=== PATIENT | female | born 2000 | race Caucasian/White ===

== ENCOUNTER → 2020-04-21 13:25 | Outpatient (BNVA) | payer MEDICAID, SELFPAY | PROVIDERS: Family Provider Nurse Practitioner; PCP Nurse Practitioner; Visit Provider Obstetrics & Gynecology | DX: Z11.3 Encounter for screening for infections with a predominantly sexual mode of transmission (principal) | CPT/HCPCS: 87491; 87591; 88175 ==

== ENCOUNTER → 2020-10-21 09:36 | Outpatient (BNVA) | payer MEDICAID, SELFPAY | PROVIDERS: Family Provider Nurse Practitioner; PCP Nurse Practitioner; Visit Provider Nurse Practitioner Family | DX: A74.9 Chlamydial infection, unspecified (principal); R10.9 Unspecified abdominal pain | CPT/HCPCS: 81000; 87491; 87591; 87661 ==

== ENCOUNTER → 2021-04-22 10:18 | Outpatient (BNVA) | payer MEDICAID, SELFPAY | PROVIDERS: Family Provider Nurse Practitioner; PCP Nurse Practitioner; Visit Provider Obstetrics & Gynecology | DX: Z01.419 Encounter for gynecological examination (general) (routine) without abnormal findings (principal); Z20.2 Contact with and (suspected) exposure to infections with a predominantly sexual mode of transmission | CPT/HCPCS: 87491; 87591; 87661 ==

== ENCOUNTER → 2021-05-03 12:58 | Outpatient (BNVA) | payer MEDICAID, SELFPAY | PROVIDERS: Family Provider Nurse Practitioner; PCP Nurse Practitioner; Visit Provider Obstetrics & Gynecology | DX: R10.31 Right lower quadrant pain (principal) | CPT/HCPCS: 76830 ==

== ENCOUNTER → 2021-12-14 11:54 | Outpatient (BNVA) | payer MEDICAID, SELFPAY | PROVIDERS: Family Provider Nurse Practitioner; PCP Nurse Practitioner; Visit Provider Nurse Practitioner | DX: K12.2 Cellulitis and abscess of mouth (principal) | CPT/HCPCS: 85025 ==

== ENCOUNTER 2022-03-12 12:43 | Emergency (ER) | payer MEDICAID, SELFPAY ==
--- NOTE | 2022-03-12 12:50 | ECG_ITS ---
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 Measurements Intervals [place] Rate: 89 P: 78 DE: 140 QRS: 61 QRSD: 87 T: 35 QT: 348 QTc: 426 Interpretive Statements SINUS RHYTHM NONSPECIFIC T-WAVE ABNORMALITY No previous ECG available for comparison Electronically Signed On 03-13-2022 17:40:27 CDT by Fredrick Carreon M.D. [id number]
[2022-03-12 12:51] VITALS: BP 117/79; PULSE 89; RESP 16; TEMP 36.7; O2SAT 100
--- NOTE | 2022-03-12 13:05 | XRR_ITS ---
PROCEDURE INFORMATION: Exam: XR Chest Exam date and time: 03/12/2022 1:19 PM Age: 21 years old Clinical indication: Angina; Additional info: Chest pain TECHNIQUE: Imaging protocol: Radiologic exam of the chest. Views: 2 views. COMPARISON: No relevant prior studies available. FINDINGS: Lungs: Unremarkable. No consolidation. Pleural spaces: Unremarkable. No pleural effusion. No pneumothorax. Heart/Mediastinum: Unremarkable. No cardiomegaly. Bones/joints: Unremarkable. XR/XR chest 2V* [id number] IMPRESSION: No acute findings.
--- NOTE | 2022-03-12 13:07 | W.ED.GENADLT ---
HPI - General Adult General: Chief complaint: Chest Pain Stated complaint: CP; L arm tingling Time Seen by Provider: 03/12/22 13:05 History of Present Illness: CC: Chest Pain HPI: This is a [21]yo patient hx of prior OCP use, vaping presenting to the ED complaining of acute sudden onset pressure-like chest pain with radiation to the left arm since 10 AM this morning after patient vape. Patient tells me that she has had episodes in the past after drinking alcohol and vaping. She reports marijuana use today. No associated with shortness of breath, chest pain or dyspnea on exertion. Pain is not tearing in nature and does not radiate to the back. Pain not associated with vomiting or PO intake. Denies any recent sympathomimetic drug use. Patient denies any cough. Denies palpitations, dysphagia, diaphoresis, radiation of pain to bilateral arms, jaw. Denies F/N/V/D. Patient denies any recent immobility, surgery, unilateral leg swelling, or prior PE. Patient denies any orthopnea. Patient has a history of OCP use last time patient had OCP filled was 1 month ago. Patient completed 2 weeks of OCPs out and stopped taking her OCP recently. Onset: 10 am ago Duration: ongoing since 10am Location: home Severity: mild/moderate Associated symptoms: Reports chest pain (+chest pressure with radiation to the L arm); Deny dyspnea, nausea, rash, palpitations or vomiting Review of Systems Const: Denies: fever(s) or chills Eyes: Denies: change in vision ENMT: Denies: mouth pain Card: Reports: chest pain (+chest pressure with radiation to the L arm); Denies: palpitations Resp: Denies: dyspnea or non-productive cough GI: Denies: abdominal pain, nausea, vomiting or diarrhea : Denies: dysuria Musc: Denies: extremity pain Skin/Breast: Denies: rash or new lesions Neuro: Denies: weakness in extremities Psych: Reports: other (Normal mood) Pietro/Lymph: Denies: easy bruising PFS ED PFSH: Medical History 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 Genital herpes Diagnosed in 2017 with HSV 1. Surgical History S/P tonsillectomy and adenoidectomy (~2001) Age 2 Status post myringotomy with insertion of tube (~2001) This was done at the time of the tonsillectomy. Family History Grandmother Diabetes Paternal Family/Other Breast cancer Two of her paternal great aunts had breast cancer in their late 70s Mother Hypertension Denies family history of CAD (coronary artery disease) Clotting disorder Hyperlipidemia Chronic kidney disease (CKD) Bleeding disorder Thyroid disease Stroke Social History Smoking and tobacco status: current every day smoker (vape) e-cigarettes Second hand smoke exposure: No Smoking risk assessment/counseling performed?: Yes Alcohol intake: current Alcohol intake frequency: holidays/special occasions only Desire information about alcohol rehabilitation?: No Counseling given: No Desire information about substance/drug rehabilitation?: No Counseling given: No Other details last substance use: Denies any drug use. Adopted: No Caregiver/support person: No Lives independently: Yes Household members: children Housing: Apartment Marital status: Single Number of children: 1 service: No Current occupational status: employed Current occupation: [employer] Current occupational exposures/hazards: No Pets and animals: Yes Pets & animals: dog(s) Current gender identity: Female Female Reproductive History: Para: 1 Physical Exam Const: COMMON NORMALS: alert HENMT: COMMON NORMALS: atraumatic HEAD & SCALP: atraumatic MOUTH: moist mucous membranes not abnormal Eye: COMMON NORMALS: EOMs intact bilaterally and conjunctivae normal CONJUNCTIVA: Yes conjunctivae normal Neck/C-Spine: COMMON NORMALS: full ROM and supple Resp: COMMON NORMALS: normal respiratory effort and clear to auscultation bilaterally AUSCULTATION: clear to auscultation bilaterally Cardio: COMMON NORMALS: regular rate RATE: regular rate OTHER: 2+ radial pulses b/l GI: COMMON NORMALS: Soft to palpation and non-tender PALPATION: Yes Soft to palpation OTHER: No focal TTP. NO guarding rebound, guarding, rigidity. No CVA tenderness to percussion. Neg Morris/Neg McBurney's point tenderness, no suprabupic tenderness to palpation. Extremity: COMMON NORMALS: full ROM NARRATIVE EXTREMITY EXAM: +no ester sign b/l Neuro: SENSORIUM/ORIENTATION: Yes alert MOTOR EXAM: No Abnormal motor strength present and Other motor observations present (no focal motor deficits) Psych: COMMON NORMALS: speech normal SPEECH: Yes normal speech MOOD & AFFECT: Yes euthymic mood Course Vital Signs: Vital signs: Vital Signs Temperature 98.0 F 03/12/22 12:51 Pulse Rate 89 03/12/22 12:51 Respiratory Rate 16 03/12/22 12:51 Blood Pressure 117/79 03/12/22 12:51 Pulse Oximetry 100 03/12/22 12:51 Oxygen Delivery Me thod 03/12/22 12:51 MDM - General Adult Medical Decision Making [21]yo patient w/ hx of recent OCP use and vaping presenting to the ED with evaluation of chest pressure since 10 after vaping. HDS, pulse 2+ radially bilaterally, no signs of fluid overload, AAOx3, neuro exam intact. Given History and Exam today I have no suspicion for ACS, Pneumothorax, Pneumonia, Pulmonary Embolus, Tamponade, Aortic Dissection or other emergent problems as a cause for this presentation. Howevere, given the recent OCP use and vaping, we will obtain D-dimer today to evaluate for possible PE. Workup: ECG, XR chest Interventions: Tylenol 500mg Findings: ECG: No overt evidence of STEMI, hyperacute T waves, localizable STD or T wave inversions. No evidence of Brugada?s sign, delta wave, epsilon wave, significantly prolonged QTc, or malignant arrhythmia. No Q waves. Other Labs unremarkable for emergent problems. CXR: Without PTX, PNA, or widened mediastinum Last Stress Test: never Last Heart Catheterization: never HEART Score: 0 Dimer wnl [2:30pm] On reassessment, the patient is HDS, no complaints of persistent chest pain in the ED after evaluation. ECG is non-ischemic. Workup today is unremarkable. Doubt ACS/PE or other emergent causes of chest pain. Doubt ACS/PE or other emergent causes of chest pain. No suspicion for aortic dissection given no widened mediastinum, 2+ upper extremity pulses, or tearing pain. No suspicion for PE given no pleuritic chest pain, recent immobilization or surgery hemoptysis, or other VTE risk factors. EKG is non-ischemic. XR normal. Rx: Tylenol 500mg Q6Hrs x 5 days PRN pain Disposition: Discharge. Strict return precautions discussed with the patient with full understanding. Advised patient to follow up promptly with a primary care provider in 24-48 hrs if the patient has persistent symptoms. Given return instructions for any crushing/tearing chest pain, focal weakness, syncope or any new or concerning issues. Lab Data : 03/12/22 13:30 03/12/22 13:30 Radiology Impressions Chest X-Ray 03/12/22 13:05 IMPRESSION: No acute findings. Laboratory Results WBC 7.0 10^3/uL (4.0-10.0) 03/12/22 13:30 RBC 5.28 10^6/uL (4.1-5.3) 03/12/22 13:30 Hgb 17.2 g/dL (11.5-15.3) H 03/12/22 13:30 Hct 49.2 % (37.0-47.0) H 03/12/22 13:30 MCV 93.2 fl (81-99) 03/12/22 13:30 MCH 32.6 pg (28.0-34.0) 03/12/22 13:30 MCHC 35.0 g/dL (30.0-36.0) 03/12/22 13:30 RDW 11.4 % (12.1-15.1) L 03/12/22 13:30 Plt Count 263 10^3/cmm (130-400) 03/12/22 13:30 MPV 10.2 fL (7.4-10.4) 03/12/22 13:30 Neut % (Auto) 54.8 % 03/12/22 13:30 Lymph % (Auto) 35.2 % 03/12/22 13:30 [place] % (Auto) 8.1 % 03/12/22 13:30 Eos % (Auto) 0.6 % 03/12/22 13:30 Baso % (Auto) 0.7 % 03/12/22 13:30 Neut # (Auto) 3.86 10^3/uL (1.8-7.7) 03/12/22 13:30 Lymph # (Auto) 2.5 10^3/uL (0.8-4.8) 03/12/22 13:30 [place] # (Auto) 0.6 10^3/uL (0.2-0.9) 03/12/22 13:30 Eos # (Auto) 0.0 10^3/uL (0.0-0.8) 03/12/22 13:30 Baso # (Auto) 0.1 10^3/uL (0.0-0.1) 03/12/22 13:30 Nucleated RBC % (auto) 0 % 03/12/22 13:30 Nucleated RBCs # 0.0 /100WBC 03/12/22 13:30 D-Dimer <= 0.27 ug/mIFEU (0-0.59) 03/12/22 13:30 Sodium 138 mmol/L (136-145) 03/12/22 13:30 Potassium 3.6 mmol/L (3.5-5.1) 03/12/22 13:30 Chloride 100 mmol/L (98-107) 03/12/22 13:30 Carbon Dioxide 24 mmol/L (22-29) 03/12/22 13:30 Anion Gap 17.6 (5-19) 03/12/22 13:30 BUN 8 mg/dL (6-20) 03/12/22 13:30 Creatinine 0.6 mg/dL (0.5-0.9) 03/12/22 13:30 GFR Calculation 123.9 mL/min (90-130) 03/12/22 13:30 Glucose 85 mg/dL (65-115) 03/12/22 13:30 Calculated Osmolality 284 mOsm/kg (285-295) L 03/12/22 13:30 Calcium 9.6 mg/dL (8.5-10.5) 03/12/22 13:30 Troponin T Gen 5 ng/L 6 ng/L (0-10) 03/12/22 13:30 Discharge Plan Discharge Patient Disposition: Home Clinical Impression: Chest pain Condition: Stable Prescriptions: New acetaminophen 500 mg tablet 500 mg PO Q6H PRN (Reason: pain) 5 Days Qty: 20 0RF Discharge Orders: Discharge ED (Routine); Ordered 03/12/22 Ordered By: José Miguel Barksdale Referrals: Meaghan Taylor, [facility] [Primary Care Provider] - Discharge Diet: Advance as tolerated Discharge Activity: Increase activity as tolerated and May return to work/school without restrictions Patient Instructions: Chest Pain (ED) Activity Restrictions/Additional Instructions: Come back to the emergency room if your chest pain worsens, have any fever or chills, worsening shortness of breath, worsening exertional lightheadedness, or any new or concerning complaints. Coding Level of Care Code ED Elementary Science Teacher for [place] Fwd Exam Comprehensive
[2022-03-12 14:01] LABS: Basophils # 0.1 10^3/uL (0.0-0.1); Basophils % 0.7 %; Eosinophils % 0.6 %; Hematocrit 49.2 % (37.0-47.0); Hemoglobin 17.2 g/dL (11.5-15.3); Lymphocytes # 2.5 10^3/uL (0.8-4.8); Lymphocytes % 35.2 %; Mean Corpuscular Hemoglobin 32.6 pg (28.0-34.0); Mean Corpuscular Volume 93.2 fl (81-99); Mean Platelet Volume 10.2 fL (7.4-10.4); Monocytes # 0.6 10^3/uL (0.2-0.9); Monocytes % 8.1 %; Neutrophils # 3.86 10^3/uL (1.8-7.7); Neutrophils % 54.8 %; Nucleated Red Blood Cells % 0 %; Platelet Count 263 10^3/cmm (130-400); Red Blood Count 5.28 10^6/uL (4.1-5.3); Red Cell Distribution Width 11.4 % (12.1-15.1)
[2022-03-12 14:11] LABS: D Dimer <= 0.27 ug/mIFEU (0-0.59)
[2022-03-12 14:23] LABS: Anion Gap 17.6 (5-19); Blood Urea Nitrogen 8 mg/dL (6-20); Calcium 9.6 mg/dL (8.5-10.5); Carbon Dioxide 24 mmol/L (22-29); Chloride 100 mmol/L (98-107); Glomerular Filtration Rate 123.9 mL/min (90-130); Glucose 85 mg/dL (65-115); Osmolality Calculated 284 mOsm/kg (285-295); Potassium 3.6 mmol/L (3.5-5.1); Sodium 138 mmol/L (136-145)
[2022-03-12 14:24] LABS: Troponin T (5th) Once 6 ng/L (0-10)
[2022-03-12 14:42] VITALS: BP 130/68; PULSE 80; RESP 16; O2SAT 99
[2022-03-12 14:42] LABS: HCG, Serum Qual Negative (Negative)
== END 2022-03-12 14:42 | disposition home or self-care (01) ==
PROVIDERS: Emergency Provider Emergency Medicine; PCP Nurse Practitioner
DX: R07.9 Chest pain, unspecified (principal); F17.290 Nicotine dependence, other tobacco product, uncomplicated
CPT/HCPCS: 71046; 80048; 84484; 84703; 85025; 85378; 93005; 99285

== ENCOUNTER → 2022-07-12 11:20 | Outpatient (BNVA) | payer MEDICAID, SELFPAY | PROVIDERS: PCP Nurse Practitioner; Visit Provider Obstetrics & Gynecology | DX: Z01.419 Encounter for gynecological examination (general) (routine) without abnormal findings (principal) | CPT/HCPCS: 88175 ==

== ENCOUNTER → 2022-09-08 09:27 | Outpatient (BNVA) | payer MEDICAID, SELFPAY | PROVIDERS: PCP Nurse Practitioner; Visit Provider Nurse Practitioner Family | DX: S82.64XA Nondisplaced fracture of lateral malleolus of right fibula, initial encounter for closed fracture (principal); W19.XXXA Unspecified fall, initial encounter | CPT/HCPCS: 73610 ==

== ENCOUNTER 2022-10-09 07:44 | Outpatient (CLI) | payer MEDICAID, SELFPAY ==
--- NOTE | 2022-10-09 08:00 | CT_ITS ---
WS: [id number] CT HISTORY: suspicious for medial malleolus fracture to the right Technique: All CT scans at [facility] use at least one of these dose optimization techniques: automated exposure control; mA and/or kV adjustment per patient size (includes targeted exams where dose is matched to clinical indication); or iterative reconstruction. DLP: 122.62 mGy.cm COMPARISON: Radiograph 09/08/2022. Several small osseous densities adjacent to the distal fibula suspicious for tiny avulsion fractures. These are age indeterminate. The most suspicious fracture is measures 3 mm and embedded in soft tiss ue edema. This fracture is just distal to the fibular tip. Very slight elevation of the cortex of the distal fibula is probably also an acute injury. This is probably the donor site of the tiny avulsion fractures. No additional fractures are identified. There is a moderate amount of soft tissue edema l aterally. No joint effusion. Calcaneus and the anterior calcaneal process are normal. The ankle mortise is normal. No osteochondral lesion appreciated. CT/CT ankle RT wo con* [id number] IMPRESSION: 1. Moderate soft tissue edema surrounding the distal fibula. 2. There are 3 small osseous densities which are probably avulsion fractures a djacent to the distal fibula. Age-indeterminate but suspicious for acute avulsi on fractures due to the soft tissue edema. 3. Very slight elevation of the bony cortex of the distal fibula. This is prob ably the donor site of the avulsion fractures.
== END 2022-10-09 07:45 | disposition home or self-care (01) ==
PROVIDERS: PCP Nurse Practitioner; Visit Provider Podiatrist Foot & Ankle Surgery
DX: T14.8XXA Other injury of unspecified body region, initial encounter (principal); R60.0 Localized edema; X58.XXXA Exposure to other specified factors, initial encounter
CPT/HCPCS: 73700

== ENCOUNTER 2022-10-11 13:57 | Outpatient (CLI) | payer MEDICAID, SELFPAY | END 2022-10-11 13:58 | disposition home or self-care (01) | LOC: SPT 13:58 | PROVIDERS: PCP Nurse Practitioner; Visit Provider Podiatrist Foot & Ankle Surgery | DX: Z46.89 Encounter for fitting and adjustment of other specified devices (principal); S82.831D Other fracture of upper and lower end of right fibula, subsequent encounter for closed fracture with routine healing; X58.XXXD Exposure to other specified factors, subsequent encounter | CPT/HCPCS: 97760; L1902 ==

== ENCOUNTER → 2023-05-24 09:44 | Outpatient (BNVA) | payer MEDICAID, SELFPAY | PROVIDERS: PCP Nurse Practitioner; Visit Provider Nurse Practitioner Family | DX: N39.0 Urinary tract infection, site not specified (principal); R10.2 Pelvic and perineal pain; R30.0 Dysuria | CPT/HCPCS: 81000; 81025; 87491; 87591 ==

== ENCOUNTER → 2023-06-26 10:48 | Outpatient (BNVA) | payer MEDICAID, SELFPAY | PROVIDERS: PCP Nurse Practitioner; Visit Provider Nurse Practitioner Women's Health | DX: R10.2 Pelvic and perineal pain (principal); N83.292 Other ovarian cyst, left side | CPT/HCPCS: 76830 ==

== ENCOUNTER → 2024-02-14 09:14 | Outpatient (BNVA) | payer MEDICAID, SELFPAY | PROVIDERS: PCP Nurse Practitioner; Visit Provider Nurse Practitioner Women's Health | DX: N94.89 Other specified conditions associated with female genital organs and menstrual cycle (principal); Z30.41 Encounter for surveillance of contraceptive pills; R35.0 Frequency of micturition; Z01.419 Encounter for gynecological examination (general) (routine) without abnormal findings | CPT/HCPCS: 81000 ==

== ENCOUNTER → 2024-10-21 16:03 | Outpatient (BNVA) | payer MEDICAID, SELFPAY | PROVIDERS: PCP Nurse Practitioner; Visit Provider Nurse Practitioner Women's Health | DX: R30.0 Dysuria (principal) | CPT/HCPCS: 81000 ==

== ENCOUNTER 2024-11-05 15:35 | Outpatient (CLI) | payer MEDICAID, SELFPAY ==
--- NOTE | 2024-11-05 15:45 | CT_ITS ---
WS: [id number] CT ABDOMEN AND PELVIS WITH CONTRAST HISTORY: Uterine congestion syndrome. Heaviness in pelvis. Difficulty urinating. TECHNIQUE: Imaging performed of the abdomen and pelvis with IV contrast. Single phase imaging of the abdomen. Coronal and sagittal reformats are submitted. All CT scans at [facility] use at least one of these dose optimization techniques: automated exposure control; mA and/or kV adjustment per patient size (includes targeted exams where dose is matched to clinical indication); or iterative reconstruction. IV CONTRAST: Omnipaque 350; 100 mL IV. Oral contrast: Yes. DLP: 301.99 mGy.cm COMPARISON: Transvaginal pelvic ultrasound 06/26/2023 Lower thorax: Lung bases are clear. Heart is normal size. No hiatal hernia. Liver/biliary system: Normal size with no intrahepatic dilatation. Gallbladder: Normal. No gallstones or wall thickening. No pericholecystic fluid. Pancreas: Normal size pancreas and pancreatic duct. No adjacent inflammation. Spleen: Normal size spleen. No mass or infarct. Adrenal glands: Normal. Right kidney: Normal. Left kidney: Normal. Aorta: Normal. Lymphadenopathy: None. Free fluid: None. GI tract: Unremarkable. Abdominal wall: Unremarkable abdominal wall. No hernia. Pelvis: No free fluid or adenopathy within the pelvis. There is marked peripheral enhancement of the myometrial arcuate vessels within the uterus. These varicosities communicate with bilateral gonadal plexuses. Markedly dilated ovarian veins on both sides of the uterus but greater on the LEFT. LEFT ovarian vein is dilated and tortuous measuring up to 7 mm. LEFT ovarian vein is tortuous and extends lateral to the psoas muscle before entering the pelvis. RIGHT ovarian vein slightly smaller caliber. RIGHT ovarian corpus luteal cyst 1.7 cm. Bones: Unremarkable. CT/CT abdomen pelvis w con* [id number] IMPRESSION: 1. Significant bilateral pelvic congestion syndrome but greatest on the LEFT. Enlarged myometrial arcuate vessels communicate with bilateral dilated gonadal plexus. 2. Dilated ovarian veins, LEFT greater than RIGHT. 3. No free fluid.
[2024-11-05] MEDS: iohexol 350 mg/mL 500 mL Btl (per mL) IV (16:10)
== END 2024-11-05 15:36 | disposition home or self-care (01) ==
PROVIDERS: PCP Nurse Practitioner; Visit Provider Nurse Practitioner Women's Health
DX: N94.89 Other specified conditions associated with female genital organs and menstrual cycle (principal); R93.89 Abnormal findings on diagnostic imaging of other specified body structures; I86.2 Pelvic varices; N83.11 Corpus luteum cyst of right ovary
CPT/HCPCS: 74177

== ENCOUNTER → 2025-03-05 11:27 | Outpatient (BNVA) | payer MEDICAID, SELFPAY | PROVIDERS: PCP Nurse Practitioner; Referring Provider Nurse Practitioner Women's Health; Visit Provider Internal Medicine Cardiovascular Disease | DX: R07.9 Chest pain, unspecified (principal); R53.1 Weakness; N18.9 Chronic kidney disease, unspecified; Z79.01 Long term (current) use of anticoagulants; R07.89 Other chest pain; R00.2 Palpitations; F17.290 Nicotine dependence, other tobacco product, uncomplicated; R55 Syncope and collapse; R06.09 Other forms of dyspnea | CPT/HCPCS: 36415; 80053; 84443; 85025; 93005 ==

== ENCOUNTER 2025-04-08 08:56 | Outpatient (CLI) | payer MEDICAID, SELFPAY ==
--- NOTE | 2025-04-08 09:15 | USCV_ITS ---
Nesha Jensen Age: 24 Gender: F : 2000 Exam Date: 04/08/2025 09:03 Ordering Phys: Hugo Lundy MD ([email or web address]) Technologist: Exam Location: [facility] Indication: sob cp BP: / HR: 76 Rhythm: Sinus Technical Quality: Adequate MEASUREMENTS (Male / Female) Normal Values 2D ECHO LV Diastolic Diameter PLAX 4.3 cm 4.2 - 5.9 / 3.9 - 5.3 cm IVS Diastolic Thickness 1.2 cm 0.6 - 1.0 / 0.6 - 0.9 cm IVS Systolic Thickness 1.4 cm LVPW Diastolic Thickness 1.1 cm 0.6 - 1.0 / 0.6 - 0.9 cm LVPW Systolic Thickness 1.7 cm LVOT Diameter 2.0 cm LV Ejection Fraction 2D Teich 66.1 % LV Ejection Fraction MOD 4C 63.9 % LV Ejection Fraction MOD 2C 67.7 % LV Ejection Fraction 2C AL 67.5 % LA Diameter 3.1 cm RA Systolic Volume 4C AL 51.3 ml RA Systolic Volume 4C MOD 49.8 ml LA Sys Volume AL 53.6 cm cubed Aorta at Sinotubular Diameter 2.8 cm IVC Diameter 1.8 cm M-MODE LA Ao Ratio MM 1.1 AV Cusp Separation MM 2.3 cm DOPPLER AV Peak Velocity 128.0 cm/s LVOT Peak Velocity 92.0 cm/s AV Area Cont Eq vti 2.3 cm squared AV Area Cont Eq pk 2.2 cm squared MV Peak Velocity 98.0 cm/s MV Area PHT 4.2 cm squared Mitral E to A Ratio 2.5 TV Peak Velocity 206.5 cm/s TR Peak Velocity 215.0 cm/s TR Peak Gradient 18.5 mmHg TV Peak E Velocity 81.0 cm/s PV Peak Velocity 95.0 cm/s FINDINGS Left Ventricle Normal left ventricular size and systolic function, EF 67%.. No regional wall motion abnormalities. Right Ventricle The right ventricle is normal in size and function. Right Atrium The right atrium is normal in size. Left Atrium The left atrium is normal in size. Mitral Valve Trace mitral valve regurgitation. Aortic Valve Structurally normal trileaflet aortic valve. No gross abnormalities noted Tricuspid Valve Trace tricuspid valve regurgitation. Pulmonic Valve No gross abnormalities noted Pericardium Normal pericardium without effusion. Aorta Normal aortic annulus size. IVC Normal inferior vena cava. CONCLUSIONS Normal left ventricular size and systolic function, EF 67%.. No regional wall motion abnormalities. Normal cardiac chamber sizes. Trace of mitral and tricuspid regurgitation. Estimated pulmonary artery peak systolic pressure 22 mmHg No intracardiac masses. No intracardiac shunts by color-flow Doppler examination There is no pericardial effusion. No similar previous studies are available for comparison Dr Hugo Lundy MD [facility] (Electronically Signed) Final Date: 14 April 2025 09:52 S
== END 2025-04-08 08:57 | disposition home or self-care (01) ==
LOC: RAD 08:56
PROVIDERS: PCP Nurse Practitioner; Visit Provider Internal Medicine Cardiovascular Disease
DX: R06.09 Other forms of dyspnea (principal)
CPT/HCPCS: 93306

== ENCOUNTER 2025-05-04 12:43 | Outpatient (CLI) | payer MEDICAID, SELFPAY ==
--- NOTE | 2025-05-04 12:50 | ECG_ITS ---
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 Interpretive Statements EXERCISE STRESS TEST EXERCISE DATA: The patient was exercised by Sylvain protocol. Baseline heart rate was 51 beats per minute. Baseline blood pressure was 103/63 millimeters of mercury. Maximal predicted heart rate was 194 beats per minute. Maximum heart rate achieved was 168, which was 86% of the maximum predicted heart rate. Maximum blood pressure was 132/57 millimeters of mercury. Total exercise time was 7 minutes and 46 seconds. Maximum METs achieved was 10.2. The reason for ending the test was completion of protocol. The patient complained of shortness of breath during the stress test, which then resolved at the end of the test. ELECTROCARDIOGRAM: BASELINE: Showed sinus rhythm, normal axis, no significant ST-T changes at the baseline noted. [] EXERCISE: At the peak exercise level, [] No significant ST-T changes suggestive of ischemia noted. [] RECOVERY: During the recovery period, heart rate dropped appropriately. No significant ST-T changes in the recovery suggestive of ischemia noted. [] CONCLUSION: 1. Exercise capacity is good. 2. Heart rate response was appropriate 3. Blood pressure response was appropriate 4. Symptoms not suggestive of ischemia. 5. Stress test does not show ischemia Electronically Signed On 05-10-2025 14:59:24 CDT by Fredrick Carreon M.D. [email or web address]
[2025-05-04 12:52] VITALS: BMI 27.6
[2025-05-04 13:22] VITALS: BP 124/59; PULSE 86
== END 2025-05-04 12:44 | disposition home or self-care (01) ==
LOC: CDL 12:44
PROVIDERS: PCP Nurse Practitioner; Visit Provider Internal Medicine Cardiovascular Disease
DX: R07.9 Chest pain, unspecified (principal)
CPT/HCPCS: 93017